=== PATIENT | male | born 1980 ===

== ENCOUNTER 2017-06-03 08:39 | Day surgery (SDC) | payer BC ==
[2017-05-30 11:20] VITALS: BMI 34.5
[2017-06-03] MEDS ORDERED: Lactated Ringer's 1,000 ML IV ONE ×3 (11:22→12:32)
[2017-06-03] MEDS: Lidocaine 1% Inj (20ml) ONE ×2 (11:22→11:48)
[2017-06-03] MEDS: Bupivacaine-Epi 0.25%-1:200,000 PF Inj ONE ×2 (11:22→11:48)
[2017-06-03] MEDS: ceFAZolin IV 2 gm in Dextrose 2 GM/50 ML BAG IVPB ONE ×2 (11:23→11:35)
[2017-06-03] MEDS ORDERED: Midazolam 2 MG/2 ML VIAL ONE (11:27)
[2017-06-03] MEDS ORDERED: Propofol 10 mg/ml Inj (20 ML) ONE ×3 (11:28→12:19)
--- NOTE | 2017-06-03 12:38 | PCM.SURG1 ---
Surgeon's Initial Post Op Note - Surgeon's Notes Surgeon: Dr. Wadsworth Doughnut Icer: Howard PGY1, Slim MS3 Type of Anesthesia: IV Sedation, Local Pre-Operative Diagnosis: Scalp Sebaceous cyst, left neck sebaceous cyst Operative Findings: Same Post-Operative Diagnosis: Scalp sebaceous cyst, left neck sebaceous cyst Operation Performed: Excision of scalp sebaceous cyst and left neck sebaceous cyst Specimen/Specimens Removed: Scalp sebaceous cyst, left neck sebaceous cyst Estimated Blood Loss: EBL {In ML}: 10 Blood Products Given: N/A Drains Used: No Drains Post-Op Condition: Good Date of Surgery/Procedure: 06/03/17 Time of Surgery/Procedure: 12:39
[2017-06-03 14:03] VITALS: O2SAT 100
[2017-06-03 14:24] VITALS: BP 110/83; PULSE 83; RESP 16; TEMP 97.7
--- NOTE | 2017-06-08 01:14 | OP ---
PROCEDURE DATE: 06/03/2017 PREOPERATIVE DIAGNOSES: 1. Scalp sebaceous cyst. 2. Left neck sebaceous cyst. POSTOPERATIVE DIAGNOSES: 1. Scalp sebaceous cyst. 2. Left neck sebaceous cyst. PROCEDURES DONE: 1. Excision of the scalp sebaceous cyst, approximately 3 x 2-cm size. 2. Layered closure of the scalp wound, 3 x 2-cm size. 3. Excision of the left neck sebaceous cyst, 1 x 1-cm size. SURGEON: Felipe Wadsworth MD [employer] OPERATOR: Tremaine Lawrence, PGY-1 resident. TYPE OF ANESTHESIA: Local anesthesia plus sedation. ESTIMATED BLOOD LOSS: Around 10 mL for both procedures. DRAINS: None. PATHOLOGY: 1. Scalp sebaceous cyst. 2. Left neck sebaceous cyst was sent to pathology, COMPLICATIONS: None. INTRAOPERATIVE FINDINGS: The patient had an approximately 3 x 2-cm scalp sebaceous cyst and a 1 x 1-cm left upper neck sebaceous cyst. DESCRIPTION OF PROCEDURE: On intraoperative steps, this is a 36-year-old male, who was diagnosed with a scalp sebaceous cyst as well as a left neck sebaceous cyst and the patient was consented for excision of the both cysts, brought to the OR, and placed on the operating room table after induction of the anesthesia. The scalp and left neck again were prepped and draped in the usual sterile fashion. Local anesthesia was injected. An elliptical 3 x 2-cm incision was made, upper and lower flaps were created, and dissection was carried down medially and laterally to dissect the sebaceous cyst completely from underneath the scalp layers and hemostasis was achieved. Now, the wound was irrigated and the wound was closed in multiple layers - the scalp layer with 2-0 Vicryl, skin with 4-0 Monocryl, and another layer of the skin with 4-0 nylon and a dry, sterile dressing was applied. Now, the elliptical incision was made surrounding the left neck sebaceous cyst and the sebaceous cyst was completely excised and it was very superficial. The wound was closed in 2 layers, subQ with 2-0 Vicryl, skin with 4-0 Monocryl, and a dry sterile dressing was applied. The patient tolerated the procedure well. Count of instruments and gauze was correct. There were no apparent complications. The patient was extubated in the OR and sent to the Postanesthesia Care Unit in stable condition. Felipe Wadsworth MD
== END 2017-06-03 14:21 | disposition home or self-care (01) ==
LOC: C.SDS 08:39
PROVIDERS: ATTEND Surgery Surgical Critical Care
DX: L72.3 Sebaceous cyst (principal)
CPT/HCPCS: 11421; 11423; 12032; J0690; J2250; J2704; J3010; J7120